=== PATIENT | male | born 1960 | race Caucasian/White ===

== ENCOUNTER 2023-12-14 09:47 | Outpatient (REF) | payer BC, SELFPAY ==
[2023-12-14 10:14] LABS: MANUAL DIFF FLAG NO
[2023-12-14 10:52] LABS: Basophils Absolute Auto 0.1 X10*3/uL (0.0-0.2); Basophils Percent Auto 0.6 % (0-2); Eosinophils Absolute Auto 0.2 X10*3/uL (0.0-0.4); Eosinophils Percent Auto 1.2 % (0-4); Hematocrit 40.3 % (42.0-52.0); Hemoglobin 13.5 g/dl (14.0-18.0); Imm Gran Abs Auto 0.06 X10*3/uL (0.00-0.03); Imm Gran Pct Auto 0.4 % (0.0-0.4); Lymphocytes Absolute Auto 1.4 X10*3/uL (1.2-4.9); Lymphocytes Percent Auto 10.5 % (20-40); Mean Corpuscular HGB Conc 33.5 g/dl (31.0-36.0); Mean Corpuscular Hemoglobin 30.5 pg (27.0-33.0); Mean Corpuscular Volume 91.2 fL (80.0-98.0); Mean Platelet Volume 9.1 fL (9.4-12.4); Monocytes Absolute Auto 0.9 X10*3/uL (0.1-1.2); Monocytes Percent Auto 6.9 % (2-11); Neutrophils Absolute Auto 10.9 x10*3/uL (2.0-8.3); Neutrophils Percent Auto 80.4 % (45-73); Platelet Count 350 X10*3/uL (160-400); Red Blood Count 4.42 X10*6/uL (4.60-5.80); Red Cell Distribution Width 14.2 % (11.0-16.0); White Blood Count 13.6 X10*3/uL (4.8-10.8)
[2023-12-14 11:29] LABS: Erythrocyte Sedimentation Rate 18 MM/HR (0-15)
== END 2023-12-14 09:48 | disposition home or self-care (01) ==
LOC: HO.LAB 09:47
PROVIDERS: PCP Internal Medicine; Visit Provider Psychiatry & Neurology Neurology
DX: G44.209 Tension-type headache, unspecified, not intractable (principal)
CPT/HCPCS: 36415; 85025; 85652

== ENCOUNTER 2024-01-25 07:07 | Outpatient (REF) | payer BC, SELFPAY ==
--- NOTE | ~2024-01-25 | CT_ITS ---
EXAMINATION CT HEAD WITHOUT CONTRAST CLINICAL INFORMATION: Headache COMPARISON: None TECHNIQUE: CT of the head was performed without intravenous contrast. Reformatted axial, coronal, and sagittal images were reviewed. This CT examination was performed using dose optimization techniques as appropriate, variously including the following: *Automated exposure control *Adjustment of mA and/or kV according to patient size (this includes techniques or standardized protocols for targeted exams where dose is matched to indication/reason for exam; i.e. extremities or head) *Use of iterative reconstruction technique DLP: 9 mGy-cm FINDINGS: No intracranial hemorrhage, extra-axial fluid collection, or midline shift is identified. Barnard-white matter differentiation is preserved. Patchy subcortical white matter hypoattenuation within the oneil radiata bilaterally and posterior centrum semiovale, likely from chronic demyelination. Mild interventricular white matter hypoattenuation consistent with chronic small vessel ischemic disease. The ventricles are within normal limits. Basal cisterns are within normal limits. Left maxillary mucous retention cysts. Mastoid air cells and middle ear cavities are clear. No acute calvarial fractures. CT/CT head/brain wo IV con IMPRESSION: 1. No acute intracranial abnormality. 2. Patchy subcortical white matter hypoattenuation likely representing chronic encephalomalacia. If clinically indicated, recommend MRI brain for further evaluation. Electronically signed by: Chapito Bolton DO 01/30/2024 10:57 PM EDT
== END 2024-01-25 07:08 | disposition home or self-care (01) ==
LOC: HO.CT 07:07
PROVIDERS: PCP Internal Medicine; Visit Provider Psychiatry & Neurology Neurology
DX: R51.9 Headache, unspecified (principal)
CPT/HCPCS: 70450

== ENCOUNTER 2024-06-11 09:33 | Outpatient (REF) | payer BC, SELFPAY ==
[2024-06-11 09:43] LABS: MANUAL DIFF FLAG NO
[2024-06-11 09:55] LABS: Basophils Absolute Auto 0.1 X10*3/uL (0.0-0.2); Basophils Percent Auto 0.8 % (0-2); Eosinophils Absolute Auto 0.2 X10*3/uL (0.0-0.4); Eosinophils Percent Auto 1.4 % (0-4); Hematocrit 40.6 % (42.0-52.0); Hemoglobin 13.7 g/dl (14.0-18.0); Imm Gran Abs Auto 0.05 X10*3/uL (0.00-0.03); Imm Gran Pct Auto 0.4 % (0.0-0.4); Lymphocytes Absolute Auto 1.6 X10*3/uL (1.2-4.9); Lymphocytes Percent Auto 12.3 % (20-40); Mean Corpuscular HGB Conc 33.7 g/dl (31.0-36.0); Mean Corpuscular Hemoglobin 29.7 pg (27.0-33.0); Mean Corpuscular Volume 87.9 fL (80.0-98.0); Mean Platelet Volume 8.5 fL (9.4-12.4); Neutrophils Absolute Auto 9.7 x10*3/uL (2.0-8.3); Neutrophils Percent Auto 77.1 % (45-73); Platelet Count 328 X10*3/uL (160-400); Red Blood Count 4.62 X10*6/uL (4.60-5.80); Red Cell Distribution Width 14.1 % (11.0-16.0); White Blood Count 12.6 X10*3/uL (4.8-10.8)
--- OUTSIDE RECORDS SUMMARY | 2024-06-11 10:29 | XMS_ITS | Encounter Summary ---
Author Organization [facility] Address [phone] [facility] [place] [address] Care Team Providers Care Research Study Assistant Name Role Phone Charli Thomas MD Primary Care Provider [phone] Encounter Details Date Type Department Care Team (Latest Contact Info) Description 07/10/2023 Ancillary Orders [facility], X-Ray - [address] [place] [address] Konstantin Fields, EDITA [address] [place] [address] Vertebrogenic low back pain (Primary Dx) Social History Tobacco Use Types Packs/Day Years Used Date Smoking Tobacco: Never Smokeless Tobacco: Never Alcohol Use Standard Drinks/Week Comments Not Currently 0 (1 standard drink = 0.6 oz pur e alcohol) Education Answer Date Recorded Are you interested in more education? Not on bubba e 09/15/2022 Are you concerned about learning? Not on file 09/15/2022 No 09/15/2022 No 09/15/2022 Digital Access Answer Date Recorded No 10/17/2022 No 10/17/2022 Reliable internet access at home? Not on file 10/17/2022 Device with a working camera? Not on file Sex and Gender Information Value Date Recorded Sex Assigned at Male 01/08/2024 8:19 PM EDT Gender Identity Male 01/08/2024 8:19 PM EDT Sexual Orientation Straight 01/08/2024 8: 19 PM EDT documented as of this encounter Plan of Treatment Not on file documented as of this encounter Results * XR SACROILIAC JOINTS 3 OR MORE VIEWS (07/10/2023 9:22 AM EST) Anatomical Region Laterality Modality Pelvis Computed Radiogr aphy 07/11/2023 1:39 AM EST Impressions 07/11/2023 1:41 AM EST No evidence of sacroiliitis. Narrative 07/11/2023 1:41 AM EST XR SACROILIAC JOINTS 3 OR MORE VIEWS Referring clinician's provided indication for this examination in Epic: Pain COMPARISON: None FINDINGS: No acute fracture or dislocation. Alignment within normal limits. Symmetric appearance of the sacroiliac joints without widening, erosion, or ankylosis. Procedure Note Bonnie Tony MD - 07/11/2023 XR SACROILIAC JOINTS 3 OR MORE VIEWS Referring clinician's provided indication for this examination in Epic:Pain COMPARISON: None FINDINGS: No acute fracture or dislocation. Alignment within normal limits.Symmetric appearance of the sacroiliac joints without widening, erosion,or ankylosis. IMPRESSION: No evidence of sacroiliitis. Konstantin Fields BANK ADVISOR IMG XR PELVIS documented in this encounter Visit Diagnoses Diagnosis Vertebrogenic low back pain- Primary Vertebrogenic low back pain documented in this encounter Care Teams Research Study Assistant Relationship Specialty Start Date End Date Charli Thomas MD [address] [place] [id number] PCP - General Internal Medicine 05/04/21 documented as of this encounter Additional Source Comments The information contained in this document represents components of the legal health record. It is not the complete legal health record.[facility]
--- OUTSIDE RECORDS SUMMARY | 2024-06-11 10:29 | XMS_ITS | Clinical Summary ---
Author Organization [facility] Address [phone] Counts include 234 beds at the [facility] [employer] [place] [address] Care Team Providers Care Strategic Business Development Name Role Phone Charli Thomas MD Primary Care Provider [phone] Allergies Active Allergy Reactions Criticality Noted Date Comments Meperidine Other (See Comments) 03/22/2012 severe muscle contractions Methocarbamol Nausea Only,Vomiting,Other (See Comments) 03/22/2012 vertigo Tramadol Nausea Only,Vomiting,Other (See Comments) 03/22/2012 vertigo Medications Medication Sig Dispensed Refills Start Date End Date Status losartan (COZAAR) 100 MG tablet Take 100 mg by mouth daily. Active triamterene-hydroCHLORO thiazide (MAXZIDE-25) 37.5-25 mg per tablet Take 1 tablet by mouth daily. Active tamsulosin (FLOMAX) 0.4 mg Cap Take 0.4 mg by mouth. Active oxyCODONE-acetaminophen (PERCOCET) 5-325 mg per tablet Take 1 tablet by mouth. Active cyclobenzaprine (FLEXERIL) 10 MG tablet Take 10 mg by mouth. Active famotidine (PEPCID) 40 MG tablet Take 40 mg by mouth daily. Active loratadine (CLARITIN) 10 mg tablet Take 10 mg by mouth daily. Active balsalazide (COLAZAL) 750 mg capsule 05/03/2021 Active atorvastatin (LIPITOR) 40 MG tablet Take 1 tablet by mouth daily. 04/25/2023 Active finasteride (PROSCAR) 5 mg tablet Take 1 tablet by mouth daily. Active propranoloL (INDERAL) 40 MG immediate release tablet Take 1 tablet by mouth 2 (two) times a day. Active semaglutide (OZEMPIC) 1 mg/dose (2 mg/1.5 mL) subcutaneous injection pen Active tadalafiL (CIALIS) 5 MG tablet Take 5 mg by mouth daily. Active famotidine (PEPCID) 40 MG tablet Take 1 tablet by mouth 2 (two) times a day. Active triamterene-hydroCHLORO thiazide (MAXZIDE-25) 37.5-25 mg per tablet Take 1 tablet by mouth daily. Active Active Problems No known active problems Social History Tobacco Use Types Packs/Day Years [...] Orientation Straight 01/08/2024 8: 19 PM EDT Last Filed Vital Signs Vital Sign Reading Time Taken Comments Blood Pressure 110/80 01/15/2024 9:55 AM EDT Pulse 76 05/04/2021 6:03 PM EST Temperature 36.4 ??C (97.6 ??F) 05/04/2021 6:03 PM ES T Respiratory Rate - - Oxygen Saturation 97% 05/04/2021 6:03 PM EST Inhaled Oxygen Concentration - - Weight 83 kg (183 lb) 01/15/2024 9:55 AM EDT Height 172.7 cm (5' 8 ) 01/15/2024 9:55 AM EDT Body Mass Index 27.83 01/15/2024 9:55 AM EDT Plan of Treatment Health Maintenance Due Date Last Done Comments Adult Td,Tdap Booster 1960 LIPID PANEL 1960 DEPRESSION SCREENING 1970 HEPATITIS B SCREENING 1976 HEPATITIS C SCREENING 1976 HIV ONE-TIME SCREENING (18-6 5 YEARS) 1976 COLOGUARD 12/09/2003 COLONOSCOPY 12/09/2003 COLORECTAL CANCER SCREENING 12/09/2003 FIT TEST 12/09/2003 FOBT 12/09/2003 SIGMOIDOSCOPY 12/09/2003 VIRTUAL COLONOSCOPY 12/09/2003 CREATININE LEVEL 03/27/2013 03/27/2012 POTASSIUM LEVEL 03/27/2013 03/27/2012 SCREENING FOR DIABETES 03/27/2015 03/27/2012 PNEUMOCOCCAL VACCINES (50+ years) (2 of 2 - PPSV23) 02/22/2017 02/23/2016 INFLUENZA VACCINE (#1) 2023 03/23/2012 COVID-19 VACCINE (2023-2 5 season) 2024 04/01/2021, 06/29/2020, 06/01/2020 RSV VACCINE (1 - 1-dose 75+ series) 2033 ZOSTER VACCINES Completed 07/25/2019, 05/24/2019 SMOKING STATUS SCREENING (On ce After 26 Yrs) Completed 01/15/2024 HEPATITIS A VACCINES Aged Out No long er eligible based on patient's age to complete this topic HEPATITIS B VACCINES Aged Out No long er eligible based on patient's age to complete this topic HIB VACCINES Aged Out No longer eligi ble based on patient's age to complete this topic MENINGOCOCCAL VACCINES (ACWY) Aged Out No longer eligible based on patient's age to complete this topic Medical Devices Not on file Procedures Procedure Name Priority Date/Time Associated Diagnosis Comments HISTORICAL LAB Routine 03/27/2012 11:00 AM EST from Last 3 Months or Most Recently Relevant to Health Maintenance Results * Historical Lab (03/27/2012 11:00 AM EST) Amylase 81 3 - 100 units/L [facility] Plasma Sodium 141 135 - 145 mmol/L [facility] Plasma Potassium 3.6 3.4 - 4.8 mmol/L [facility] Plasma Chloride 103 100 - 108 mmol/L [facility] Plasma Carbon Dioxide 27.0 23.0 - 31.9 mmol/L [facility] Plasma Urea Nitrogen 10 8 - 25 mg/dl [facility] Plasma Creatinine 1.01 0.60 - 1.50 mg/dl [facility] Plasma Glucose 91 70 - 110 mg/dl [facility] Albumin 4.3 3.3 - 5.0 g/dl [facility] Total Protein 6.9 6.0 - 8.3 g/dl [facility] Calcium 9.2 8.5 - 10.5 mg/dl [facility] Alkaline Phosphatase 85 45 - 115 U/L [facility] Total Bilirubin 0.6 0.0 - 1.0 mg/dl [facility] Transaminase-SGO T 25 10 - 40 U/L [facility] Transaminase-SGP T 18 10 - 55 U/L [facility] Globulin 2.6 2.3 - 4.1 g/dl [facility] eGFR >60 mL/min/1. 73m2 [facility] Comment: Abnormal if <60 mL/min/1.73m2. If patient is -Lao, multiply the result by 1.21. Plasma Anion GAP 11 3 - 15 mmol/L [facility] Lipase 36 13 - 60 U/L [facility] 03/27/2012 11:0 0 AM EST 03/27/2012 11:28 AM EST Comment:BLOOD Charli Latif MD LAB BLOOD ORDERABLES [facility] [address] [place] [address] from Last 3 Months or Most Recently Relevant to Health Maintenance Geornimo Clay Personal/Family Self 1960 [address] [place], [place] Geronimo Clay Personal/Family Self 1960 [address] [facility] [place] [address] Clay, Geronimo Personal/Family Self 1960 [address] [facility] [place] [address] Clay, Geronimo Personal/Family Self 1960 [address] [place] [address] Clay, Geronimo Personal/Family Self 1960 [address] [place] [address] Lcay, Geronimo Personal/Family Self 1960 [address] [place] [address] Clay, Geronimo Personal/Family Self 1960 [address] [place] [address] Clay, Geronimo Personal/Family Self 1960 [address] [place] [address] Clay, Geronimo Personal/Family Self 1960 [address] [place] [address] Clay, Geronimo Third [employer]arian Liability Self 1960 [address] [place] [address] Care Teams Strategic Business Development Relationship Specialty Start Date End Date Charli Thomas MD [address] [place] [id number] PCP - General Internal Medicine 05/04/21 Additional Source Comments The information contained in this document represents components of the legal health record. It is not the complete legal health record.[facility]
--- OUTSIDE RECORDS SUMMARY | 2024-06-11 10:29 | XMS_ITS | Encounter Summary ---
Author Organization [facility] Address [phone] [facility] [place] [address] Care Team Providers Care Try On Baster Name Role Phone Charli Thomas MD Primary Care Provider [phone] Charli Thomas MD Primary Care Provider [phone] Encounter Details Date Type Department Care Team (Latest Contact Info) Description 03/18/2021 Ancillary Orders [facility], X-Ray - [address] [place] [address] Mario Prakash, DO [address] [place] [id number] [email or web address] Spondylolisthesis of lumbar region Social History Tobacco Use Types Packs/Day Years Used Date Smoking Tobacco: Never Assessed Sex and Gender Information Value Date Recorded Sex Assigned at Male 01/08/2024 8:19 PM EDT Gender Identity Male 01/08/2024 8:19 PM EDT Sexual Orientation Straight 01/08/2024 8: 19 PM EDT documented as of this encounter Plan of Treatment Not on file documented as of this encounter Results * XR LUMBOSACRAL SPINE 4 OR MORE VIEWS (03/18/2021 3:12 PM EDT) Anatomical Region Laterality Modality L-spine Computed Radiogr aphy 03/18/2021 3:34 PM EDT Impressions 03/18/2021 3:38 PM EDT 1.No evidence of instability. 2.Mild increase in grade 1 spondylolisthesis of L5 due to bilateral spondylolysis. 3.Progressive severe L5-S1 disc disease. 4.Stable moderate L4-5 disc disease and lower lumbar spine facet arthropathy. Narrative 03/18/2021 3:38 PM EDT COMPARISON: MRI lumbar spine 07/06/2017. LUMBAR SPINE RADIOGRAPH FINDINGS: 4 images obtained including lateral flexion and extension positions. Increase in grade 1 spondylolisthesis of L5-11 mm compared to 9 mm. No change with flexion and extension. Progressive severe L5-S1 disc space narrowing and stable moderate L4-5 disc space narrowing. Bilateral L5 spondylolysis. Mild L4-5 and L5-S1 facet arthropathy. No compression fractures. No destructive or suspicious bone lesions. Right upper quadrant cholecystectomy clips and pelvic sutures. Mild aortic atherosclerosis. Procedure Note Caesar Duckworth MD - 03/18/2021 COMPARISON: MRI lumbar spine 07/06/2017. LUMBAR SPINE RADIOGRAPH FINDINGS: 4 images obtained including lateral flexion and extension positions. Increase in grade 1 spondylolisthesis of L5-11 mm compared to 9 mm. Nochange with flexion and extension. Progressive severe L5-S1 disc spacenarrowing and stable moderate L4-5 disc space narrowing. Bilateral [id number]. Mild L4-5 and L5- S1 facet arthropathy. No compressionfractures. No destructive or suspicious bone lesions. Right upper quadrantcholecystectomy clips and pelvic sutures. Mild aortic atherosclerosis. IMPRESSION: 1.No evidence of instability. 2.Mild increase in grade 1 spondylolisthesis of L5 due to bilateralspondylolysis. 3.Progressive severe L5-S1 disc disease. 4.Stable moderate L4-5 disc disease and lower lumbar spine facetarthropathy. Mario Prakash DO IMG XR SPINE documented in this encounter Visit Diagnoses Diagnosis Spondylolisthesis of lumbar region Spondylolisthesis of lumbar region documented in this encounter Care Teams Try On Baster Relationship Specialty Start Date End Date Charli Thomas MD [address] [place] [address] PCP - General 11/19/13 05/03/21 Charli Thomas MD [address] [place] [address] PCP - General Internal Medicine 05/04/21 documented as of this encounter Additional Source Comments The information contained in this document represents components of the legal health record. It is not the complete legal health record.[facility]
--- OUTSIDE RECORDS SUMMARY | 2024-06-11 10:29 | XMS_ITS | Clinical Summary ---
Author Organization [facility] Address [address] [place] [address] Phone Care Team Providers Care Crew Leader Gluing Name Role Phone Charli Thomas MD Primary Care Provider [phone] Allergies Active Allergy Reactions Criticality Noted Date Comments Celecoxib 04/09/2021 Lisinopril 04/09/2021 Meperidine Hcl 04/14/2021 Methocarbamol 04/14/2021 Rofecoxib 04/09/2021 Tramadol Hcl 04/09/2021 Medications Medication Sig Dispensed Refills Start Date End Date Status atorvastatin (LIPITOR) 40 mg tabletIndications:Ath erosclerotic heart disease of [place] coronary artery without angina pectoris TAKE 1 TABLET BY MOUTH EVERY DAY 90 tablet 05/09/2024 Active balsalazide (COLAZAL) 750 mg capsule Take 2,250 mg by mouth 3 times daily. Active cyclobenzaprine (FLEXERIL) 10 mg tablet Take 10 mg by mouth 3 times daily as needed. Active famotidine (PEPCID) 40 mg tablet Take 1 Tablet by mouth 2 Times Daily. Active finasteride (PROSCAR) 5 mg tablet Take 1 Tablet by mouth daily. Active loratadine (CLARITIN) 10 mg tablet Take 10 mg by mouth daily. Active losartan (COZAAR) 100 mg tablet Take 100 mg by mouth daily. Active oxyCODONE-acetaminoph en (PERCOCET) 5-325 mg per tablet Take 1 tablet by mouth every 4 hours as needed. Active propranoloL (INDERAL) 40 mg tablet Take 1 Tablet by mouth 2 Times Daily. Active saccharomyces boulardii (FLORASTOR) 250 mg capsule Take 250 mg by mouth every morning & every evening. Active semaglutide (Ozempic) 1 mg/dose (2 mg/1.5 mL) injection pen Inject 1 mg into the skin once a week. Active tadalafiL (CIALIS) 5 mg tablet Take 5 mg by mouth daily. Active triamterene-hydroCHLO ROthiazide (MAXZIDE-25) 37.5-25 mg per tablet Take 1 tablet by mouth daily. Active multivitamin (MULTIPLE VITAMINS ORAL) Take by mouth. Active Active Problems Problem Noted Date Diagnosed Date Coronary artery disease invo lving [place] heart without angina pectoris 10/25/2021 Overview (06/10/2024): Mild coronary plaquing seen on coronary CTA back in 2020 Last Assessment & Plan: Will get the recent lipids from Dr. Thomas. Asymptomatic and doing well. Hypertension 10/25/2021 Overview (06/10/2024): Last Assessment & Plan: Controlled on multiple agents. Mixed hyperlipidemia 10/25/2021 Overview (06/10/2024): Last Assessment & Plan: Lipids have been excellent. Will get the most recent labs from Dr. Thomas Abnormal cardiovascular stress test 04/14/2021 Overview (06/10/2024): Last Assessment & Plan: Cardiac cath ultimately showed nonobstructive disease and he has no symptoms. Chest pain 04/14/2021 Social History Tobacco Use Types Packs/Day Years Used Date Smoking Tobacco: Never Smokeless Tobacco: Never Alcohol Use Standard Drinks/Week Comments Not Currently 0 (1 standard drink = 0.6 oz pur e alcohol) Sex and Gender Information Value Date Recorded Sex Assigned at Not on file Gender Identity Not on file Sexual Orientation Not on file Job Start Date Occupation Industry Not on file Not on file Not on file Obstetrics History Last Filed Vital Signs Vital Sign Reading Time Taken Comments Blood Pressure 118/60 11/22/2023 11:18 AM EDT Si tting L Arm Pulse 62 11/22/2023 11:18 AM EDT Temperature - - Respiratory Rate - - Oxygen Saturation - - Inhaled Oxygen Concentration - - Weight 86.6 kg (191 lb) 11/22/2023 11:18 AM EDT Height 172.7 cm (5' 8 ) 11/22/2023 11:18 AM EDT Body Mass Index 29.04 11/22/2023 11:18 AM EDT Plan of Treatment Upcoming Encounters Date Type Department Care Team (Late st Contact Info) Description 07/19/2024 9:15 AM EST Office Visit Gastroenterology - [address] [facility] [address] [place] [address] Roderick Cárdenas MD [address] [address] Health Maintenance Due Date Last Done Comments DTaP,Tdap,and Td Vaccines (1 - Tdap) 1977 Zoster Vaccines (1 of 2) 2008 Colorectal Cancer Screening: Colonoscopy 04/30/2022 Depression Screening 04/30/2022 Hepatitis C Screening 04/30/2022 Social Influencers of Health Screening 04/30/2022 Hypertension/CHF/CAD Annual BMP Blood Test 05/01/2022 11/01/2018 Falls Risk Assessment 12/09/2023 Pneumococcal Vaccine: 65+ Ye ars (1 of 1 - PCV) 12/09/2023 COVID-19 Vaccine ( - 2023-2 5 season) 2024 Influenza Vaccine (#1) 2024 Cholesterol Screening (Lipid Panel) 05/20/2029 05/20/2024 RSV Immunization Patients 60 + Years Old (1 - 1-dose 75+ series) 2033 HIB Vaccines Aged Out No longer eligi ble based on patient's age to complete this topic HPV Vaccines Aged Out No longer eligi ble based on patient's age to complete this topic Hepatitis A Vaccines Aged Out No long er eligible based on patient's age to complete this topic Hepatitis B Vaccines Aged Out No long er eligible based on patient's age to complete this topic IPV Vaccines Aged Out No longer eligi ble based on patient's age to complete this topic MMR Vaccines Aged Out No longer eligi ble based on patient's age to complete this topic Meningococcal ACWY Vaccine Aged Out N o longer eligible based on patient's age to complete this topic Pneumococcal Vaccine: Pediat rics (0 to 5 Years) and At-Risk Patients (6 to 64 Years) Aged Out No longer eligi ble based on patient's age to complete this topic RSV Immunization Patients Un shaq 20 months Aged Out No longer eligible b ased on patient's age to complete this topic Varicella Vaccines Aged Out No longer eligible based on patient's age to complete this topic Procedures Procedure Name Priority Date/Time Associated Diagnosis Comments LIPOPROTEIN Routine 05/20/2024 8:07 AM EST LIPID PANEL WITH REFLEX TO LIPOPROTEIN NMR Routine 05/20/2024 8:07 AM EST from Last 3 Months Results * (ABNORMAL) Lipoprotein (05/20/2024 8:07 AM EST) LDL-P <300 <1000 nmol/L [facility] Comment: ?Low ? < 1000 ?Moderate ? 1000 - 1299 ?Borderline-High ??1300 - 1599 ?High ? 1600 - 2000 ?Very High ? > 2000 HDL-P (Total) 27.7(L) >=30.5 umol/L [facility] Small LDL-P <90 <=527 nmol/L [facility] LDL Size CANCELED nm [facility] Comment: Test not performed. LDL levels not sufficient for LDL size determination. ? INTERPRETATIVE INFORMATION ? PARTICLE CONCENTRATION AND SIZE ?<--Lower CVD Risk ?? Higher CVD Risk--> ??LDL AND HDL PARTICLES ?? Percentile in Reference Population ??HDL-P (total) ?High ? 75th ?50th ?25th ?? Low ? >34.9 ?34.9 ?30.5 ?26.7 ?? <26.7 ??Small LDL-P ?Low ?25th ?50th ?75th ?? High ? <117 ? 117 ? 527 ? 839 ?>839 ??LDL Size ?? <-Large (Pattern A)-> ?<-Small (Pattern B)-> ?23.0 ?20.6 ? 20.5 ?19.0 Small LDL-P and LDL Size are associated with CVD risk, but not after LDL-P is taken into account. Result canceled by the ancillary. LP-IR Score 61(H) <=45 [facility] Comment: INSULIN RESISTANCE MARKER ?<--Insulin Sensitive ?Insulin Resistant--> ? Percentile in Reference Population Insulin Resistance Score LP-IR Score ?? Low ?? 25th ?? 50th ?? 75th ?? High ?<27 ?? 27 ? 45 ? 63 ? >63 LP-IR Score is inaccurate if patient is non-fasting. The LP-IR score is a laboratory developed index that has been associated with insulin resistance and diabetes risk and should be used as one component of a physician's clinical assessment. 05/20/2024 8:07 AM EST 05/20/2024 Narrative [facility] - 05/22/2024 5:05 PM EST Performed at: ??02 - [facility] [address] ??[id number] Auto Appraiser: Ruma Faria MD, Phone: ??[phone] Vickey Rangel MD LAB BLOOD ORDERABLES Performing Organization Address City/State/[facility] Co de Phone Number [facility] * (ABNORMAL) Lipid panel with reflex to lipoprotein NMR (05/20/2024 8:07 AM EST) Cholesterol Total 92(L) 100 - 199 mg/dL [facility] HDL Cholesterol 37(L) >39 mg/dL [facility] LDL/HDL Ratio 0.9 0.0 - 3.6 ratio [facility] Comment: ?LDL/HDL Ratio ?Men ??Women ?1/2 Avg.Risk ??1.0 ?1.5 ?Avg.Risk ??3.6 ?3.2 ? 2X Avg.Risk ??6.2 ?5.0 ? 3X Avg.Risk ??8.0 ?6.1 Non-HDL Cholesterol 55 0 - 129 mg/dL [facility] Triglycerides 104 0 - 149 mg/dL [facility] LDL Chol Calc (NIH) 35 0 - 99 mg/dL [facility] 1 05/20/2024 8:07 AM EST 05/20/2024 Narrative [facility] - 05/22/2024 5:05 PM EST Test(s) 470523-[id number]; [id number]-[id number]-C (Total); [id number] LDL-P; [id number]-KKS Size; [id number]-[id number] Score was developed and its performance characteristics determined by [facility]. It has not been cleared or approved by the Food and Drug Administration. Performed at: ??01 - [facility] [address] ??[id number] Auto Appraiser: Marnie Navarro MD, Phone: ??[phone] Vickey Rangel MD LAB BLOOD ORDERABLES [facility] 1 from Last 3 Months Care Teams Crew Leader Gluing Relationship Specialty Start Date End Date Charli hTomas MD [address] PCP - General 10/29/07
--- OUTSIDE RECORDS SUMMARY | 2024-06-11 10:30 | XMS_ITS | Encounter Summary ---
Author Organization [facility] Address [phone] [facility] [place] [address] Care Team Providers Care Sleep Scientist Name Role Phone Charli Thomas MD Primary Care Provider [phone] Charli Thomas MD Primary Care Provider [phone] [phone] Encounter Details Date Type Department Care Team (Late st Contact Info) Description 06/29/2017 Procedure Pass [address] [place] [address] Social History Tobacco Use Types Packs/Day Years Used Date Smoking Tobacco: Never Assessed Sex and Gender Information Value Date Recorded Sex Assigned at Male 01/08/2024 8:19 PM EDT Gender Identity Male 01/08/2024 8:19 PM EDT Sexual Orientation Straight 01/08/2024 8: 19 PM EDT documented as of this encounter Plan of Treatment Not on file documented as of this encounter Visit Diagnoses Not on filedocumented in this encounter Care Teams Sleep Scientist Relationship Specialty Start Date End Date Charli Thomas MD [address] [address] PCP - General 11/19/13 05/03/21 Charli Thomas MD [address] [address] PCP - General Internal Medicine 05/04/21 documented as of this encounter Additional Source Comments The information contained in this document represents components of the legal health record. It is not the complete legal health record.[facility]
--- OUTSIDE RECORDS SUMMARY | 2024-06-11 10:30 | XMS_ITS | Encounter Summary ---
Author Organization [facility] Address [phone] [facility] [place] [address] Care Team Providers Care Risk Officer Name Role Phone Charli Thomas MD Primary Care Provider [phone] Charli Thomas MD Primary Care Provider [phone] Reason for Referral * MRI/CAT Scan - Closed Specialty Diagnoses / Procedures Referred By Contac t Referred To Contact Radiology Diagnoses Disc degeneration, lumbosacral Procedures MRI Lumbar Spine Mario Prakash DO [address] [place] [id number] Referral ID Status Reason Start Date Expiration Date Visits Re quested Visits Authorized [id number] Closed 06/29/2017 08/27/2017 1 1 Encounter Details Date Type Department Care Team (Late st Contact Info) Description 06/29/2017 Ancillary Orders Virtual Department [address] [place] [id number] Mario Prakash DO [address] [place] [phone] [email or web address] Disc degeneration, lumbosacral Social History Tobacco Use Types Packs/Day Years Used Date Smoking Tobacco: Never Assessed Sex and Gender Information Value Date Recorded Sex Assigned at Male 01/08/2024 8:19 PM EDT Gender Identity Male 01/08/2024 8:19 PM EDT Sexual Orientation Straight 01/08/2024 8: 19 PM EDT documented as of this encounter Plan of Treatment Not on file documented as of this encounter Results * MRI LUMBAR SPINE (NEURO) WITHOUT CONTRAST (07/06/2017 1:53 PM EST) Anatomical Region Laterality Modality L-spine Magnetic Resonan ce 07/06/2017 1:33 PM EST Impressions 07/06/2017 1:57 PM EST Limited without prior imaging for comparison. ??Minimal increase in grade 1 spondylolisthesis of L5 based on the prior report. ??Otherwise stable degenerative changes as outlined POS - [id number] Narrative 07/06/2017 1:57 PM EST COMPARISON: [facility] MRI lumbar spine report dated 06/18/2010. TECHNIQUE: Exam performed on a 1.5 Angeline high-field MRI scanner. ??Sagittal T1, T2 and STIR, axial T1 and T2 sequences were obtained. MRI LUMBAR SPINE FINDINGS: Moderate L4-5 and L5-S1 disc space narrowing and disc desiccation. ??Grade 1 spondylolisthesis of L5 measuring 9 mm increased from 7 mm reported previously. 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 ??Minimal L4 retrolisthesis. ??Small endplate Schmorl's nodes throughout the lower thoracic and upper lumbar spine. No bone marrow signal abnormality. ??Conus terminates at T12-L1. ??Paraspinal soft tissues are normal. L1-L2: Normal. L2-L3: Mild disc bulging. L3-L4: Normal. L4-L5: Small central disc extrusion and generalized disc bulging. ??Mild facet arthropathy. L5-S1: Grade 1 spondylolisthesis. ??Mild facet arthropathy. ??Moderate bilateral neural foraminal stenosis due to spurring. Procedure Note Duong Marquez MD - 07/06/2017 COMPARISON: [facility] MRI lumbar spine report dated 06/18/2010. TECHNIQUE: Exam performed on a 1.5 Angeline high-field MRI scanner. SagittalT1, T2 and STIR, axial T1 and T2 sequences were obtained. MRI LUMBAR SPINE FINDINGS: Moderate L4-5 and L5-S1 disc space narrowing and disc desiccation. Grade1 spondylolisthesis of L5 measuring 9 mm increased from 7 mm reportedpreviously. There is bilateral L5 spondylolysis which is partially fusedon the right and fused on the left. Minimal L4 retrolisthesis. Smallendplate Schmorl's nodes throughout the lower thoracic and upper lumbarspine. No bone marrow signal abnormality. Conus terminates at T12-L1.Paraspinal soft tissues are normal. L1-L2: Normal. L2-L3: Mild disc bulging. L3-L4: Normal. L4-L5: Small central disc extrusion and generalized disc bulging. Mildfacet arthropathy. L5-S1: Grade 1 spondylolisthesis. Mild facet arthropathy. Moderatebilateral neural foraminal stenosis due to spurring. IMPRESSION: Limited without prior imaging for comparison. Minimal increase in grade 1spondylolisthesis of L5 based on the prior report. Otherwise stabledegenerative changes as outlined POS - [id number] Mario Prakash DO IMG MR XSPECIALTY documented in this encounter Visit Diagnoses Diagnosis Disc degeneration, lumbosacral Degeneration of lumbar or lumbosacral intervertebral disc Disc degeneration, lumbosacral Degeneration of lumbar or lumbosacral intervertebral disc documented in this encounter Care Teams Risk Officer Relationship Specialty Start Date End Date Charli Thomas MD [address] [address] PCP - General 11/19/13 05/03/21 Charli Thomas MD [address] [address] PCP - General Internal Medicine 05/04/21 documented as of this encounter Additional Source Comments The information contained in this document represents components of the legal health record. It is not the complete legal health record.[facility]
[2024-06-11 10:49] LABS: Erythrocyte Sedimentation Rate 23 MM/HR (0-15)
== END 2024-06-11 09:34 | disposition home or self-care (01) ==
LOC: HO.LAB 09:33
PROVIDERS: Visit Provider Psychiatry & Neurology Neurology
DX: R51.9 Headache, unspecified (principal)
CPT/HCPCS: 36415; 85025; 85652

== ENCOUNTER 2024-07-23 10:07 | Outpatient (REF) | payer BC, SELFPAY ==
[2024-07-23 11:40] LABS: Erythrocyte Sedimentation Rate 20 MM/HR (0-15)
--- OUTSIDE RECORDS SUMMARY | 2024-07-23 12:02 | XMS_ITS | Encounter Summary ---
Author Organization [facility] Address [phone] [facility] [email or web address] [address] Care Team Providers Care Coagulating Drying Supervisor Name Role Phone Charli Thomas MD Primary Care Provider [phone] Charli Thomas MD Primary Care Provider [phone] [phone] Encounter Details Date Type Department Care Team (Latest Contact Info) Description 03/18/2021 Ancillary Orders [facility], X-Ray - [address] [place] [address] Mario Prakash, DO [address] [place] [phone] [email or web address] Spondylolisthesis of lumbar region Social History Tobacco [...] stable moderate L4-5 disc space narrowing. Bilateral [id number]. Mild L4-5 and L5- S1 facet arthropathy. [...] region documented in this encounter Care Teams Coagulating Drying Supervisor Relationship Specialty Start Date End Date Charli Thomas MD [address] [place] [address] PCP - General 11/19/13 05/03/21 Charli Thomas MD [address] [place] [address] PCP - General Internal Medicine 05/04/21 documented as of this encounter Additional Source Comments The information contained in this document represents components of the legal health record. It is not the complete legal health record.[facility]
--- OUTSIDE RECORDS SUMMARY | 2024-07-23 12:03 | XMS_ITS | Encounter Summary ---
Author Organization [facility] Address [phone] [facility] [place] [address] Care Team Providers Care Enterprise Records Analyst Name Role Phone Charli Thomsa MD Primary Care Provider [phone] Charli Thomas MD Primary Care Provider [phone] Encounter Details Date Type Department Care Team (Late st Contact Info) Description 06/29/2017 Procedure Pass [address] [place] [address] Social History Tobacco Use Types Packs/Day Years [...] on filedocumented in this encounter Care Teams Enterprise Records Analyst Relationship Specialty Start Date End Date Charli Thomas MD [address] [address] PCP - General 11/19/13 05/03/21 Charli Thomas MD [address] [address] PCP - General Internal Medicine 05/04/21 documented as of this encounter Additional Source Comments The information contained in this document represents components of the legal health record. It is not the complete legal health record.[facility]
--- OUTSIDE RECORDS SUMMARY | 2024-07-23 12:03 | XMS_ITS | Clinical Summary ---
Author Organization [facility] [address] 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 Active oxyCODONE-acetam inophen (PERCOCET) 5-325 mg per tablet Take 1 [...] Take 5 mg by mouth daily. Active triamterene-hydr oCHLOROthiazide (MAXZIDE-25) 37.5-25 mg per tablet Take 1 tablet by mouth daily. Active multivitamin (MULTIPLE VITAMINS ORAL) Take by mouth. Active hydrocortisone (ANUSOL-HC) 2.5 % rectal creamIndications :Crohn's disease of large intestine without complication (CMS/HCC) Insert into the rectum 2 (two) times a day if needed for hemorrhoids (for rectal discomfort) for up to 14 days. Apply externally to rectum as needed for rectal discomfort 30 g 10 5 08/03/19 25 Active Active Problems Problem Noted Date Diagnosed Date Coronary artery disease invo lving [place] heart without angina pectoris 10/25/2021 Overview (06/10/2024): [...] he has no symptoms. Chest pain 04/14/2021 Encounters Date Type Department Care Team Description 07/19/2024 11:00 AM EST Office Visit Gastroenterology - 299 [place] [address] [facility] [address] [place] [address] Sydni Doyle, COUNTY COMMISSIONER Esophageal dysphagia (Primary Dx); Crohn's disease of large intestine without complication (CMS/HCC) 07/19/2024 Telephone Gastroenterology - [address] [place] [address] [phone] Roderick Cárdenas MD from Last 3 Months Social History Tobacco Use Types Packs/Day Years Used Date Smoking Tobacco: Never Smokeless Tobacco: Never Alcohol Use Standard Drinks/Week Comments Not Currently 0 (1 standard drink = 0.6 oz pur e alcohol) Sex and Gender Information Value Date Recorded Sex Assigned at Not on file Legal Sex Male 9:59 PM EST Gender Identity Not on file Sexual Orientation Not on file Obstetrics History Last Filed Vital Signs Vital Sign Reading Time Taken Comments Blood Pressure 118/60 11/22/2023 11:18 AM EDT Si tting L Arm Pulse 62 11/22/2023 11:18 AM EDT Temperature - - Respiratory Rate - - Oxygen Saturation - - Inhaled Oxygen Concentration - - Weight 90.7 kg (200 lb) 07/19/2024 10:58 AM EST Height 172.7 cm (5' 8 ) 07/19/2024 10:58 AM EST Body Mass Index 30.41 07/19/2024 10:58 AM EST Plan of Treatment Upcoming Encounters Date Type Department Care Team (Late st Contact Info) Description 09/16/2024 8:30 AM EDT Appointment [facility] Endoscopy [address] [place] [phone] Roderick Cárdenas MD [address] [address] Health Maintenance Due Date Last Done Comments Pneumococcal Vaccine: 50+ Years (1 of 1 - PCV) 2008 Colorectal Cancer Screening: Colonoscopy 04/30/2022 Depression Screening 04/30/2022 Hepatitis C Screening 04/30/2022 Social Influencers of Health Screening 04/30/2022 Falls Risk Assessment 12/09/2023 Hypertension/CHF/CAD Annual BMP Blood Test 07/01/2025 07/01/2024, 11/01/2018 Cholesterol Screening (Lipid Panel) 07/01/2029 07/01/2024, 05/20/2024 DTaP,Tdap,and Td Vaccines (2 - Td or Tdap) 04/05/2034 04/05/2024 Zoster Vaccines Completed 07/25/2019, 05/24/2019 RSV Immunization Patients 60+ Years Old Completed 04/14/2023 Influenza Vaccine Completed 03/20/2024, , 03/23/2012 COVID-19 Vaccine Completed 04/03/2024, 12/2022, 03/29/2022, Additional history exists HIB Vaccines Aged Out No longer eligi [...] patient's age to complete this topic Meningococcal B Vacine Aged Out No lo nger eligible based on patient's age to complete this topic Pneumococcal Vaccine: Pediatrics (0 to 5 Years) and At-Risk Patients (6 to 64 Years) Aged Out No longer eligible based on patient's age to complete this topic RSV Immunization Patients Under 20 months Aged Out No longer eligible based on patient's age to complete this topic Varicella Vaccines Aged Out No longer eligible based on patient's age to complete this topic Procedures Procedure Name Priority Date/Time Associated Diagnosis Comments URINALYSIS WITH REFLEX MICROSCOPIC Routine 07/01/2024 12:25 PM EST Orthostatic headache Benign enlargement of prostate Essential hypertension, malignant URINALYSIS WITH REFLEX MICROSCOPIC Routine 07/01/2024 12:25 PM EST Orthostatic headache Benign enlargement of prostate Essential hypertension, malignant MICROALBUMIN CREATININE URINE RATIO Routine 07/01/2024 12:25 PM EST Orthostatic headache Benign enlargement of prostate Essential hypertension, malignant CBC WITH AUTO DIFFERENTIAL Routine 07/01/2024 12:12 PM EST Orthostatic headache Benign enlargement of prostate Essential hypertension, malignant THYROID STIMULATING HORMONE Routine 07/01/2024 12:12 PM EST Orthostatic headache Benign enlargement of prostate Essential hypertension, malignant PROSTATE SPECIFIC ANTIGEN SCREEN Routine 07/01/2024 12:12 PM EST Orthostatic headache Benign enlargement of prostate Essential hypertension, malignant Screening for prostate cancer LEAD Routine 07/01/2024 12:12 PM EST Orthostatic headache Benign enlargement of prostate Essential hypertension, malignant HEMOGLOBIN A1C Routine 07/01/2024 12:12 PM EST Orthostatic headache Benign enlargement of prostate Essential hypertension, malignant Abnormal finding of blood chemistry, unspecified THYROXINE FREE Routine 07/01/2024 12:12 PM EST Orthostatic headache Benign enlargement of prostate Essential hypertension, malignant CBC AND DIFFERENTIAL Routine 07/01/2024 12:12 PM EST Orthostatic headache Benign enlargement of prostate Essential hypertension, malignant LIPID PANEL WITH REFLEX TO DIRECT LDL Routine 07/01/2024 12:12 PM EST Orthostatic headache Benign enlargement of prostate Essential hypertension, malignant COMPREHENSIVE METABOLIC PANEL Routine 07/01/2024 12:12 PM EST Orthostatic headache Benign enlargement of prostate Essential hypertension, malignant LIPOPROTEIN Routine 05/20/2024 8:07 AM EST LIPID PANEL WITH REFLEX TO LIPOPROTEIN NMR Routine 05/20/2024 8:07 AM EST from Last 3 Months Results * Urinalysis with reflex microscopic (07/01/2024 12:25 PM EST) Specific [place] Urine 1.016 1.003 - 1.030 LAB URINALYSIS - AUTOMATED METHOD 07/01/2024 1:48 PM EST [facility] pH, Urine 8.0 5.0 - 8.0 pH LAB URINALYSIS - AUTOMATED METHOD 07/01/2024 1:48 PM EST [facility] Leukocytes, Urine Negative Negative LAB URINALYSIS - AUTOMATED METHOD 07/01/2024 1:48 PM [facility] Nitrite, Urine Negative Negative LAB URINALYSIS - AUTOMATED METHOD 07/01/2024 1:48 PM [facility] Protein, Urine Negative <=Trace mg/dL LAB URINALYSIS - AUTOMATED METHOD 07/01/2024 1:48 PM [facility] Glucose, Urine Negative Negative mg/dL LAB URINALYSIS - AUTOMATED METHOD 07/01/2024 1:48 PM [facility] Ketones, Urine Negative Negative mg/dL LAB URINALYSIS - AUTOMATED METHOD 07/01/2024 1:48 PM [facility] Urobilinogen, Urine 0.2 0.2 - 1.0 mg/dL LAB URINALYSIS - AUTOMATED METHOD 07/01/2024 1:48 PM [facility] Bilirubin, Urine Negative Negative LAB URINALYSIS - AUTOMATED METHOD 07/01/2024 1:48 PM [facility] Blood, Urine Negative Negative LAB URINALYSIS - AUTOMATED METHOD 07/01/2024 1:48 PM [facility] Urine Urine specimen obtained by clean catch procedure / Unknown Non-blood Collection / Unknown 07/01/2024 12:25 PM EST 07/01/2024 1:31 PM EST us Ander BROWN LAB URINE ORDERABLES Final Res ult [facility] [address] [place] [address], [place] [phone] * Microalbumin creatinine urine ratio (07/01/2024 12:25 PM EST) Creatinine, Urine 120.0 mg/dL LAB CHEMISTRY METHOD 07/01/2024 4:50 PM [facility] Microalb, Ur 8.3 0.0 - 29.0 mg/L LAB CHEMISTRY METHOD 07/01/2024 4:50 PM EST [facility] Microalb/Creat Ratio 7 <30 mg/g creat LAB CHEMISTRY METHOD 07/01/2024 4:50 PM EST [facility] Urine Urine specimen obtained by clean catch procedure / Unknown Non-blood Collection / Unknown 07/01/2024 12:25 PM EST 07/01/2024 1:27 PM EST Ander BROWN LAB URINE ORDERABLES Final Res ult Performing Organization Address [facility]/ZIP Co de Phone Number [facility] [address] [place] [address], [place] [phone] * Prostate specific antigen screen (07/01/2024 12:12 PM EST) PSA 1.72 0.00 - 4.00 ng/mL LAB CHEMISTRY METHOD 07/01/2024 4:08 PM EST [facility] Blood Venous blood specimen / Unknown Venipuncture / Unknown 07/01/2024 12:12 PM EST 07/01/2024 1:31 PM EST Narrative [facility] - 07/01/2024 4:08 PM EST The Siemens Advia Centaur Chemiluminescent Immunoassay is used. Results obtained with different assay methods or kits cannot be used interchangeably. Results cannot be interpreted as absolute evidence of the presence or absence of malignant disease. Ander BROWN LAB BLOOD ORDERABLES Final Res ult [facility] [address] [place] [address], [place] [phone] * Lipid panel with reflex to direct LDL (07/01/2024 12:12 PM EST) Cholesterol 96 0 - 200 mg/dL LAB CHEMISTRY METHOD 07/01/2024 4:10 PM EST [facility] Triglycerides 141 0 - 150 mg/dL LAB CHEMISTRY METHOD 07/01/2024 4:10 PM EST [facility] HDL 44 >=40 mg/dL LAB CHEMISTRY METHOD 07/01/2024 4:10 PM [facility] LDL Calculated 24 0 - 100 mg/dL LAB CHEMISTRY METHOD 07/01/2024 4:10 PM [facility] VLDL Cholesterol Nacho 28.2 mg/dL LAB CHEMISTRY METHOD 07/01/2024 4:10 PM [facility] Non HDL Chol. (LDL+VLDL) 52 <145 mg/dL LAB CHEMISTRY METHOD 07/01/2024 4:10 PM [facility] Chol/HDL Ratio 2.2 0.0 - 4.4 LAB CHEMISTRY METHOD 07/01/2024 4:10 PM [facility] Blood Venous blood specimen / Unknown Venipuncture / Unknown 07/01/2024 12:12 PM EST 07/01/2024 1:31 PM EST us Ander BROWN LAB BLOOD ORDERABLES Final Res ult [facility] [address] [place] [address], * (ABNORMAL) CBC auto differential (07/01/2024 12:12 PM EST) WBC 12.4(H) 4.8 - 10.8 K/mcL LAB HEMETOLOGY METHOD 07/01/2024 1:57 PM [facility] RBC 4.60 4.50 - 5.50 M/mcL LAB HEMETOLOGY METHOD 07/01/2024 1:57 PM [facility] Hemoglobin 13.4(L) 13.5 - 17.5 g/dL LAB HEMETOLOGY METHOD 07/01/2024 1:57 PM EST [facility] Hematocrit 40.8(L) 42.0 - 54.0 % LAB HEMETOLOGY METHOD 07/01/2024 1:57 PM [facility] MCV 89.7 79.0 - 98.0 FL LAB HEMETOLOGY METHOD 07/01/2024 1:57 PM [facility] MCH 29.5 27.0 - 32.0 pcg LAB HEMETOLOGY METHOD 07/01/2024 1:57 PM [facility] MCHC 32.8 32.0 - 37.0 g/dL LAB HEMETOLOGY METHOD 07/01/2024 1:57 PM [facility] RDW 14.4 11.0 - 15.0 % LAB HEMETOLOGY METHOD 07/01/2024 1:57 PM [facility] Platelets 352 130 - 400 K/mcL LAB HEMETOLOGY METHOD 07/01/2024 1:57 PM [facility] MPV 9.0 7.0 - 11.0 FL LAB HEMETOLOGY METHOD 07/01/2024 1:57 PM [facility] NRBC 0.0 <1.0 % LAB HEMETOLOGY METHOD 07/01/2024 1:57 PM [facility] NRBC Absolute 0.00 <0.10 K/mcL LAB HEMETOLOGY METHOD 07/01/2024 1:57 PM [facility] Neutrophils Relative 75.7 % LAB HEMETOLOGY METHOD 07/01/2024 1:57 PM [facility] Lymphocytes Relative 14.5 % LAB HEMETOLOGY METHOD 07/01/2024 1:57 PM [facility] Monocytes Relative 7.1 % LAB HEMETOLOGY METHOD 07/01/2024 1:57 PM [facility] Eosinophils Relative 1.3 % LAB HEMETOLOGY METHOD 07/01/2024 1:57 PM [facility] Basophils Relative 0.8 % LAB HEMETOLOGY METHOD 07/01/2024 1:57 PM EST [facility] Immature Granulocytes Relative 0.6 % LAB HEMETOLOGY METHOD 07/01/2024 1:57 PM EST [facility] Neutrophils Absolute 9.36(H) 1.50 - 7.00 K/mcL LAB HEMETOLOGY METHOD 07/01/2024 1:57 PM [facility] Lymphocytes Absolute 1.79 1.00 - 5.00 K/mcL LAB HEMETOLOGY METHOD 07/01/2024 1:57 PM [facility] Monocytes Absolute 0.88 0.20 - 1.00 K/[facility] LAB HEMETOLOGY METHOD 07/01/2024 1:57 PM EST [facility] Eosinophils Absolute 0.16 0.00 - 0.50 K/mcL LAB HEMETOLOGY METHOD 07/01/2024 1:57 PM [facility] Basophils Absolute 0.10 0.00 - 0.20 K/mcL LAB HEMETOLOGY METHOD 07/01/2024 1:57 PM [facility] Immature Granulocytes Absolute 0.07(H) 0.00 - 0.03 K/mcL LAB HEMETOLOGY METHOD 07/01/2024 1:57 PM EST [facility] Blood Venous blood specimen / Unknown Venipuncture / Unknown 07/01/2024 12:12 PM EST 07/01/2024 1:31 PM EST us nAder BROWN LAB BLOOD ORDERABLES Final Res ult [facility] [address] [place] [address], * Thyroid stimulating hormone (07/01/2024 12:12 PM EST) TSH 1.83 0.40 - 4.00 mcIU/mL LAB CHEMISTRY METHOD 07/01/2024 4:08 PM EST [facility] Blood Venous blood specimen / Unknown Venipuncture / Unknown 07/01/2024 12:12 PM EST 07/01/2024 1:31 PM EST Ander BROWN LAB BLOOD ORDERABLES Final Res ult [facility] [address] [place] [address], [place] [phone] * Thyroxine free (07/01/2024 12:12 PM EST) Free T4 1.48 0.70 - 1.80 ng/dL LAB CHEMISTRY METHOD 07/01/2024 4:08 PM EST [facility] Blood Venous blood specimen / Unknown Venipuncture / Unknown 07/01/2024 12:12 PM EST 07/01/2024 1:31 PM EST Ander BROWN LAB BLOOD ORDERABLES Final Res ult Performing Organization Address City/[facility]/ZIP Co de Phone Number [facility] [address] [place] [address], [place] [phone] * Lead (07/01/2024 12:12 PM EST) Lead 2.5 <5.0 ug/dL 07/04/2024 9:02 AM EST [facility] Comment: CDC recommendations for clinical follow up and lead level monitoring may vary depending on initial measured lead level and the patient's age. ??Local and state health departments also may have different recommendations for monitoring and clinical follow up. ??Please consult your local or state health department, or the CDC's website regarding monitoring of lead levels in adults: https://www.cdc.gov/niosh/topics/hien/pdfs/ Methodology used in analysis is atomic absorption. Elevated results may be due to skin or collection-related contamination, including the use of a noncertified lead-free tube,or transfer of sample into a noncertified lead-free tube. If contamination concerns exist due to elevated levels of blood lead, confirmation with a venous specimen collected in a certified lead-free tube is recommended. The Blood Lead test was developed and the performance characteristics determined by [facility]. It has not been cleared or approved by the FDA. The laboratory is regulated under CLIA as qualified to perform high-complexity testing. This test is used for patient testing purposes. It should not be regarded as investigational or for research. Test performed at [facility], [address] , [place], [place] ??[address] ? [phone] Rashmi Estrada MD, PhD - X Ray Technologist Blood Venous blood specimen / Unknown Venipuncture / Unknown 07/01/2024 12:12 PM EST 07/01/2024 1:31 PM EST Ander Cam [place] LAB BLOOD ORDERABLES Final Res ult Performing Organization Address City/[facility]/ZIP Co de Phone Number [facility] [address] [place] [address] * Hemoglobin A1c (07/01/2024 12:12 PM EST) Hemoglobin A1C 5.6 <6.5 % LAB CHEMISTRY METHOD 07/01/2024 10:39 PM EST [facility] Mean Bld Glu Estim. 114 mg/dL LAB CHEMISTRY METHOD 07/01/2024 10:39 PM EST [facility] Blood Venous blood specimen / Unknown Venipuncture / Unknown 07/01/2024 12:12 PM EST 07/01/2024 1:31 PM EST Ander BROWN LAB BLOOD ORDERABLES Final Res ult [facility] [address] [place] [address], [place] [phone] * (ABNORMAL) Comprehensive metabolic panel (07/01/2024 12:12 PM EST) Sodium 139 133 - 145 mmol/L LAB CHEMISTRY METHOD 07/01/2024 4:10 PM [facility] Potassium 3.8 3.5 - 5.5 mmol/L LAB CHEMISTRY METHOD 07/01/2024 4:10 PM [facility] Chloride 103 96 - 110 mmol/L LAB CHEMISTRY METHOD 07/01/2024 4:10 PM [facility] CO2 30 21 - 32 mmol/L LAB CHEMISTRY METHOD 07/01/2024 4:10 PM [facility] Anion Gap 6 3 - 11 LAB CHEMISTRY METHOD 07/01/2024 4:10 PM [facility] Glucose 87 70 - 100 mg/dL LAB CHEMISTRY METHOD 07/01/2024 4:10 PM [facility] BUN 15 5 - 25 mg/dL LAB CHEMISTRY METHOD 07/01/2024 4:10 PM [facility] Creatinine 1.13 0.70 - 1.30 mg/dL LAB CHEMISTRY METHOD 07/01/2024 4:10 PM [facility] eGFR 72 >=60 mL/min/1. 73m2 LAB CHEMISTRY METHOD 07/01/2024 4:10 PM [facility] Comment:Calculation based on the??Chronic Kidney Disease Epidemiology Collaboration (CKD-EPI) equation refit??without adjustment for race. BUN/Creatinine Ratio 13.3 LAB CHEMISTRY METHOD 07/01/2024 4:10 PM [facility] Calcium 9.2 8.5 - 10.5 mg/dL LAB CHEMISTRY METHOD 07/01/2024 4:10 PM [facility] AST (SGOT) 22 10 - 42 unit/L LAB CHEMISTRY METHOD 07/01/2024 4:10 PM [facility] ALT (SGPT) 21 10 - 60 unit/L LAB CHEMISTRY METHOD 07/01/2024 4:10 PM [facility] Alkaline Phosphatase 129(H) 42 - 121 unit/L LAB CHEMISTRY METHOD 07/01/2024 4:10 PM [facility] Total Protein 6.4 6.0 - 8.0 g/dL LAB CHEMISTRY METHOD 07/01/2024 4:10 PM EST [facility] Albumin 3.4 3.2 - 5.0 g/dL LAB CHEMISTRY METHOD 07/01/2024 4:10 PM EST [facility] Total Bilirubin 0.6 0.0 - 1.4 mg/dL LAB CHEMISTRY METHOD 07/01/2024 4:10 PM EST [facility] Blood Venous blood specimen / Unknown Venipuncture / Unknown 07/01/2024 12:12 PM EST 07/01/2024 1:31 PM EST us Ander BRWON LAB BLOOD ORDERABLES Final Res ult [facility] [address] [place] [address], * (ABNORMAL) Lipoprotein (05/20/2024 8:07 AM EST) [...] PM EST Performed at: ??02 - [facility] [address] ??[id number] Bicycle Taxi Driver: Ruma Faria MD, Phone: ??[phone] us Vickey Rangel MD LAB BLOOD ORDERABLES Edited Res ult - Final Performing Organization Address City/State/[facility] [...] 1 - 05/22/2024 5:05 PM EST Test(s) 196714-BNO-I; 794046-JTF-F (Total); 895236-Himcy LDL-P; 186026-DPZ Size; 225755-QO-MB Score was developed and its performance characteristics determined by [facility]. It has not been cleared or approved by the Food and Drug Administration. Performed at: ??01 - [facility] [address] ??[id number] Bicycle Taxi Driver: Marnie Navarro MD, Phone: ??[phone] us Vickey Rnagel MD LAB BLOOD ORDERABLES Final Resu lt [facility] 1 from Last 3 Months Insurance MEDICARE [facility] Care Teams Crust Sorter Relationship Specialty Start Date End Date Ander Cam PA [address] [place] [id number] PCP - General Primary Care 07/19/24
--- OUTSIDE RECORDS SUMMARY | 2024-07-23 12:03 | XMS_ITS | Encounter Summary ---
Author Organization [facility] Address [address] [place] [address] Care Team Providers Care Automatic Data Processing Planner Name Role Phone Ander Cam Primary Care Provider [phone] Encounter Details Date Type Department Care Team (Late Contact Info) Description 07/19/2024 Telephone Gastroenterology - [address] [address] Judy Cárdenas MD [address] [address] Social History Tobacco Use Types Packs/Day Years Used Date Smoking Tobacco: Never Smokeless Tobacco: Never Alcohol Use Standard Drinks/Week Comments Not Currently 0 (1 standard drink = 0.6 oz pur e alcohol) Sex and Gender Information Value Date Recorded Sex Assigned at Not on file Legal Sex Male 9:59 PM EST Gender Identity Not on file Sexual Orientation Not on file documented as of this encounter Progress Notes * Consuelo Cardenas - 07/19/2024 11:29 AM EST PT WAS SEEN TODAY WITH NO INSURANCE REFERRAL FOR BS HMO. FAX SENT TO [facility] PLEASE SEND PATIENTS HMO INSURANCE REFERRAL WITH A START DATE OF TODAY, EXTENDING ONE YEAR. 6V, PT IS SCHEDULED FOR EGD AND SIGMOID COLON ON 09/16/[address] JUDY CÁRDENAS, documented in this encounter Plan of Treatment Upcoming Encounters Date Type Department Care Team (Late Contact Info) Description 09/16/2024 8:30 AM EDT Appointment [facility] Endoscopy [address] [place] [address] Judy Cárdenas MD 229 [facility] [address] [place] [address] documented as of this encounter Visit Diagnoses Not on filedocumented in this encounter Care Teams Automatic Data Processing Planner Relationship Specialty Start Date End Date Ander Cam PA 299 [facility] [address] [place] [address] PCP - General Primary Care 07/19/24 documented as of this encounter
--- OUTSIDE RECORDS SUMMARY | 2024-07-23 12:03 | XMS_ITS | Encounter Summary ---
Author Organization [facility] Address [phone] [facility] [place] [address] Care Team Providers Care Residue Furnace Operator Name Role Phone Charli Thomas MD Primary Care Provider [phone] Charli Thomas MD Primary Care Provider [phone] Reason for Referral * MRI/CAT Scan - Closed Specialty Diagnoses / Procedures Referred By Contac t Referred To Contact Radiology Diagnoses Disc degeneration, lumbosacral Procedures MRI Lumbar Spine Mario Prakash DO [address] [place] [phone] Referral ID Status Reason Start Date Expiration Date Visits Re quested Visits Authorized [id number] Closed 06/29/2017 08/27/2017 1 1 Encounter Details Date Type Department Care Team (Late st Contact Info) Description 06/29/2017 Ancillary Orders Virtual Department [address] [place] [id number] Mario Prakash DO [address] [place] [phone] [email or web address] Disc degeneration, lumbosacral Social History Tobacco Use [...] stable degenerative changes as outlined POS - [id number] Narrative 07/06/2017 1:57 PM EST COMPARISON: [facility] MRI lumbar spine report dated 06/18/2010. TECHNIQUE: [...] Note Duong Marquez MD - 07/06/2017 COMPARISON: [facility] MRI lumbar spine report dated 06/18/2010. TECHNIQUE: [...] Otherwise stabledegenerative changes as outlined POS - [id number] Mario Prakash DO IMG MR XSPECIALTY documented in this encounter Visit Diagnoses Diagnosis Disc degeneration, lumbosacral Degeneration of lumbar or lumbosacral intervertebral disc Disc degeneration, lumbosacral Degeneration of lumbar or lumbosacral intervertebral disc documented in this encounter Care Teams Residue Furnace Operator Relationship Specialty Start Date End Date Charli Thomas MD [address] [address] PCP - General 11/19/13 05/03/21 Charli Thomas MD [address] [address] PCP - General Internal Medicine 05/04/21 documented as of this encounter Additional Source Comments The information contained in this document represents components of the legal health record. It is not the complete legal health record.[facility]
--- OUTSIDE RECORDS SUMMARY | 2024-07-23 12:03 | XMS_ITS | Clinical Summary ---
Author Organization [facility] Address [phone] [facility] [place] [address] Care Team Providers Care Manager Transfer Name Role Phone Charli Thomas MD Primary Care Provider [phone] Allergies Active Allergy Reactions Criticality Noted Date [...] EST) Amylase 81 3 - 100 units/L [facility] Plasma Sodium 141 135 - 145 mmol/L [facility] Plasma Potassium 3.6 3.4 - 4.8 mmol/L [facility] Plasma Chloride 103 100 - 108 mmol/L [facility] Plasma Carbon Dioxide 27.0 23.0 - 31.9 mmol/L [facility] Plasma Urea Nitrogen 10 8 - 25 mg/dl [facility] Plasma Creatinine 1.01 0.60 - 1.50 mg/dl [facility] Plasma Glucose 91 70 - 110 mg/dl [facility] Albumin 4.3 3.3 - 5.0 g/dl [facility] Total Protein 6.9 6.0 - 8.3 g/dl [facility] Calcium 9.2 8.5 - 10.5 mg/dl [facility] Alkaline Phosphatase 85 45 - 115 U/L [facility] Total Bilirubin 0.6 0.0 - 1.0 mg/dl [facility] Transaminase-SGO T 25 10 - 40 U/L [facility] Transaminase-SGP T 18 10 - 55 U/L [facility] Globulin 2.6 2.3 - 4.1 g/dl [facility] eGFR >60 mL/min/1. 73m2 [facility] Comment: Abnormal if <60 mL/min/1.73m2. If patient is -Emirati, multiply the result by 1.21. Plasma Anion GAP 11 3 - 15 mmol/L [facility] Lipase 36 13 - 60 U/L [facility] 03/27/2012 11:0 0 AM EST 03/27/2012 11:28 AM EST Comment:BLOOD Charli Latif MD LAB BLOOD ORDERABLES [facility] [address] [place] [address] from Last 3 Months or Most Recently Relevant to Health Maintenance Geronimo Clay Personal/Family Self 1960 [address] [place] Geronimo Clay Personal/Family Self [address] [place] [place] [address] Clay, Geronimo Personal/Family Self 1960 [address] [facility] [place] [address] Clay, Geronimo Personal/Family Self 1960 [address] [place] [address] Clay, Geronimo Personal/Family Self 1960 [address] [place] [address] Clay, Geronimo Personal/Family Self 1960 [address] [place] [address] Clay, Geronimo Personal/Family Self 1960 [address] [place] [address] Clay, Geronimo Personal/Family Self 1960 [address] [place] [address] Clay, Geronimo Personal/Family Self 1960 [address] [place] [address] Clay, Geronimo Third Alliance Party Liability Self 1960 [address] [place] [address] Care Teams Manager Transfer Relationship Specialty Start Date End Date Charli Thomas MD [address] [place] [id number] PCP - General Internal Medicine 05/04/21 Additional Source Comments The information contained in this document represents components of the legal health record. It is not the complete legal health record.[facility]
--- OUTSIDE RECORDS SUMMARY | 2024-07-23 12:03 | XMS_ITS | Encounter Summary ---
Author Organization [facility] Address [phone] [facility] [place] [address] Care Team Providers Care Supervisor Roving Department Name Role Phone Charli Thomas MD Primary Care Provider [phone] Encounter Details Date Type Department Care Team (Latest Contact Info) Description 07/10/2023 Ancillary Orders [facility], X-Ray - [address] [place] [address] Konstantin Fields, [address] [place] [address] [email or web address] Vertebrogenic low back pain (Primary Dx) Social [...] IMPRESSION: No evidence of sacroiliitis. Konstantin Fields [employer]LECT[employer] ENGINEERING TECHNOLOGIST IMG XR PELVIS documented in this encounter Visit Diagnoses Diagnosis Vertebrogenic low back pain- Primary Vertebrogenic low back pain documented in this encounter Care Teams Supervisor Roving Department Relationship Specialty Start Date End Date Charli Thomas MD [address] [place] [id number] PCP - General Internal Medicine 05/04/21 documented as of this encounter Additional Source Comments The information contained in this document represents components of the legal health record. It is not the complete legal health record.[facility]
--- OUTSIDE RECORDS SUMMARY | 2024-07-23 12:03 | XMS_ITS | Encounter Summary ---
Author Organization [facility] Address [address] [place] [address] Care Team Providers Care Casing Tester Name Role Phone Ander Cam Primary Care Provider [phone] Reason for Visit * Reason Comments EGD Pt received recall f or fu & egd Encounter Details Date Type Department Care Team ([facility] st Contact Info) Description 07/19/2024 11:00 AM EST Office Visit Gastroenterology - [address] [facility] [address] [place] [address] [phone] Tyler Vasquez, EDITA [address] [facility] [address] [place] [id number] Esophageal dysphagia (Primary Dx); Crohn's disease of large intestine without complication (CMS/HCC) Social History Tobacco Use Types Packs/Day Years [...] on file documented as of this encounter Last Filed Vital Signs Vital Sign Reading Time Taken Comments Blood Pressure - - Pulse - - Temperature - - Respiratory Rate - - Oxygen Saturation - - Inhaled Oxygen Concentration - - Weight 90.7 kg (200 lb) 07/19/2024 10:58 AM EST Height 172.7 cm (5' 8 ) 07/19/2024 10:58 AM EST Body Mass Index 30.41 07/19/2024 10:58 AM EST documented in this encounter Ordered Prescriptions Prescription Sig Dispense Quantity Refills Last Filled Start Date End Date hydrocortisone (ANUSOL-HC) 2.5 % rectal creamIndications:C rohn's disease of large intestine without complication (CMS/HCC) Insert into the rectum 2 (two) times a day if needed for hemorrhoids (for rectal discomfort) for up to 14 days. Apply externally to rectum as needed for rectal discomfort 30 g 10 07/19/2024 documented in this encounter Progress Notes * Tyler Vasquez NP - 07/19/2024 11:00 AM ESTAddended by: TYLER VASQUEZ on: 07/19/2024 12:28 PM Modules accepted: Orders * Cassandra Syed MA - 07/19/2024 11:00 AM EST egd * Tyler Vasquez NP - 07/19/2024 11:00 AM EST CHIEF COMPLAINT: Dysphagia and Crohns DATE OF LAST ENDOSCOPIC PROCEDURES: 06/2022 Colonoscopy and EGD with dilation HPI: Geronimo Clay is a 63 y.o. old male who was originally referred to us by STEPHANIE Rodas nowpresents to the gastroenterology department today to schedule a repeat sigmoidoscopy and upper endoscopy. Mr. Clay tells me that overall he is doing well. In 2022 he complained of dysphagia and hada dilation which resolved the issue. Today he tells me he is having mid esophageal dysphagia with both solids and liquids. He also has a history of a gastric submucosal lesion which Dr. Cárdenas could not see at his last encoscopy. Mr. Clay tells me his bowel are workig ok and he denies bleedingor abdominal pain. His weight is down due to the use of Zepbound. ROS: GENERAL: No malaise, significant weight loss or fever HEENT: No changes in hearing or vision or swallowing problems RESPIRATORY: No cough, wheezing or shortness of breath CARDIOVASCULAR: No chest pain, leg swelling or palpitations GI: See H&P The remainder of the review of systems is reviewed and negative. PAST MEDICAL HISTORY: Crohns colitis HTN/ Right BBB GERD Schatzki ring BPH Submucosal gastric lesion Benign familial tremor Chronic back pain PAST SURGICAL HISTORY: Subtotal colectomy 1989 Cholecystectomy/ ERCP Bilat IH repair Eye surgery SOCIAL HISTORY: No tobacco No EtOH FAMILY HISTORY: No family history on file. ACTIVE MEDICATIONS: Balsalazide 750mg 9 pills daily Losartan 100mg QD Triamterene/HCTZ 37.5/25mg QD Atorvastatin 40mg QD Pepcid 40mg BID Percocet 5/325 Q 8hrs prn Cyclobenzaprine 10mg PRN Cialis 5mg PRN Inderal 40mg BID Proscar 5mg QD Zepbound weekly ALLERGIES: Allergies Allergen Reactions Celecoxib Lisinopril Meperidine Hcl Methocarbamol Rofecoxib Tramadol Hcl Ultram [Tramadol] PHYSICAL EXAM: Visit Vitals Ht 1.727 m (68 ) Wt 90.7 kg (200 lb) BMI 30.41 kg/m?? Smoking Status Never BSA 2.04 m?? APPEARANCE: Alert and in no acute distress EYES: PERRLA, conjunctiva and sclera normal. HEART: RRR with normal S1 and S2, no murmurs appreciated LUNG: clear to auscultation ABDOMEN: nontender without masses NEURO: Awake, alert and oriented x 3 Assessment & Plan Esophageal dysphagia EGD with dilation Crohn's disease of large intestine without complication (CMS/HCC) Flex sigmoidoscopy Discussed with patient indications for procedure as well as risks of bleeding, infection, risk of perforation and reaction to anesthesia. Patient is aware of risk of missed lesions. Indications including screening for potential pre- malignant lesions and attempting to remove them. Patient needs to stop Zepbound one week before General: Patient aware needs a ride home Nor to have liquids for at least three hours before procedure. Patient understands and would like to proceed No follow-ups on file. I would like to thank STEPHANIE Rodas for the opportunity to partake in the patient's care. Board Certified Gastroenterology [facility] W [phone] [place] [id number] [email or web address] Tyler Vasquez NP documented in this encounter Plan of Treatment Upcoming Encounters Date Type Department Care Team (Late st Contact Info) Description 09/16/2024 8:30 AM EDT Appointment [facility] Endoscopy [address] [place] [phone] Roderick Cárdenas MD [address] [facility] [address] [place] [address] documented as of this encounter Visit Diagnoses Diagnosis Esophageal dysphagia- Primary Dysphagia, pharyngoesophageal phase Crohn's disease of large intestine without complication (CMS/HCC) documented in this encounter Care Teams Casing Tester Relationship Specialty Start Date End Date Ander Cam PA [address] [facility] [address] [place] [address] PCP - General Primary Care 07/19/24 documented as of this encounter
[2024-07-23 14:03] LABS: C Reactive Protein 0.34 mg/dL (< or = 0.50)
== END 2024-07-23 10:08 | disposition home or self-care (01) ==
LOC: HO.LAB 10:07
PROVIDERS: Visit Provider Registered Nurse
DX: R51.9 Headache, unspecified (principal)
CPT/HCPCS: 36415; 85652; 86140